=== PATIENT | female | born 2000 | race Caucasian/White ===

== ENCOUNTER 2020-09-10 21:07 | Emergency (ER) | payer OTHER ==
[2020-09-10] MEDS ORDERED: ZOFRAN4 M1 PO (21:56)
[2020-09-10] MEDS ORDERED: MEDROL 4MG DOSEP4 MG PO (21:56)
== END 2020-09-10 22:06 | disposition home or self-care (01) ==
LOC: FER 21:07
DX: R06.02 Shortness of breath (principal); R05 Cough; R07.9 Chest pain, unspecified; R43.8 Other disturbances of smell and taste; J45.909 Unspecified asthma, uncomplicated; F17.210 Nicotine dependence, cigarettes, uncomplicated; Z86.19 Personal history of other infectious and parasitic diseases; Z79.899 Other long term (current) drug therapy; Z20.822 Contact with and (suspected) exposure to COVID-19
CPT/HCPCS: 99284; U0002

== ENCOUNTER 2020-09-12 15:18 | Emergency (ER) | payer OTHER ==
[~2020-09-12 15:18] MED LIST: MEDROL 4MG DOSEP4 MG PO; ZOFRAN4 M1 PO
[2020-09-12 17:49] LABS: BASOPHIL 0.6 % (0-2); EOSINOPHIL 0.6 % (0-5); HCT 39.6 % (37.0-47.0); HGB 13.7 g/dl (12.5-16.0); LYMPHOCYTE 46.4 % (15-48); MCH 36.1 pg (25.0-31.0); MCHC 34.6 g/dL (32.0-36.0); MCV 104.2 fL (78.0-100.0); MONOCYTE 5.8 % (0-12); MPV 9.4 fL (6.0-9.5); NEUTROPHIL 46.6 % (41-80); NRBC 0; PLT 222 K/uL (150-400); RDW 13.1 % (11.5-14.0); WBC 4.9 K/uL (4.0-10.5)
[2020-09-12 17:49] LABS: BILIRUBIN NEGATIVE (NEGATIVE); BLOOD NEGATIVE Ery/uL (NEGATIVE); CLARITY CLEAR (CLEAR); COLOR YELLOW (YELLOW); GLUCOSE (U) NORMAL (NORMAL); LEUKOCYTES NEGATIVE Leu/uL (NEGATIVE); NITRITE NEGATIVE (NEGATIVE); PROTEIN NEGATIVE (NEGATIVE); SPECIFIC GRAVITY 1.025 (1.001-1.030); pH 6.5 (5.0-9.0)
[2020-09-12 17:58] LABS: ALBUMIN 4.2 g/dL (3.4-5.0); BILIRUBIN - TOTAL 0.5 mg/dL (0.2-1.0); BUN/CREAT RATIO (CALC) 18.3 RATIO; CREATININE 0.6 mg/dL (0.51-0.95); GLOBULIN (CALCULATION) 3.9 g/dL; POTASSIUM 4.1 mmol/L (3.5-5.1); TOTAL PROTEIN 8.1 g/dL (6.4-8.2)
== END 2020-09-12 20:30 | disposition home or self-care (01) ==
LOC: FER 15:18
PROVIDERS: Nurse Practitioner Family
DX: B34.9 Viral infection, unspecified (principal); R11.2 Nausea with vomiting, unspecified; J45.909 Unspecified asthma, uncomplicated; F17.210 Nicotine dependence, cigarettes, uncomplicated; Z79.899 Other long term (current) drug therapy
CPT/HCPCS: 36415; 71046; 80053; 81003; 85025; J1885; J2550; J7030